=== PATIENT | male | born 1990 | race Two or more races ===

== ENCOUNTER 2017-09-03 13:31 | Outpatient (CLI) | payer OTHER | END 2017-09-03 13:41 | disposition home or self-care (01) | LOC: LAB 13:31 | DX: E83.42 Hypomagnesemia (principal); E55.9 Vitamin D deficiency, unspecified ==

== ENCOUNTER 2017-09-03 13:47 | Outpatient (CLI) | payer OTHER | END 2017-09-03 13:57 | disposition home or self-care (01) | LOC: EKG 13:47 | DX: I49.9 Cardiac arrhythmia, unspecified (principal) ==

== ENCOUNTER 2017-09-03 13:56 | Outpatient (CLI) | payer OTHER | END 2017-09-03 14:06 | disposition home or self-care (01) | LOC: RAD 13:56 | DX: Z76.89 Persons encountering health services in other specified circumstances (principal) ==

== ENCOUNTER 2017-09-20 06:10 | Day surgery (SDC) | payer OTHER | END 2017-09-20 12:35 | disposition home or self-care (01) | LOC: CIR.AMB 06:10 | DX: M12.262 Villonodular synovitis (pigmented), left knee (principal); M23.342 Other meniscus derangements, anterior horn of lateral meniscus, left knee; M22.12 Recurrent subluxation of patella, left knee ==

== ENCOUNTER 2017-11-12 06:35 | Day surgery (SDC) | payer OTHER ==
[2017-11-12] MEDS ORDERED: LEVAQUIN750 MG PO (10:36)
[2017-11-12] MEDS ORDERED: ULTRACET PO (10:36)
[2017-11-12] MEDS ORDERED: BACTRIM DS TAB1 EACH PO (10:37)
== END 2017-11-12 13:00 | disposition home or self-care (01) ==
LOC: CIR.AMB 06:35
DX: M00.862 Arthritis due to other bacteria, left knee (principal); M23.342 Other meniscus derangements, anterior horn of lateral meniscus, left knee; M22.12 Recurrent subluxation of patella, left knee

== ENCOUNTER 2019-05-04 15:59 | Emergency (ER) | payer OTHER ==
[~2019-05-04] VITALS: Ht 175.3 cm; Wt 83.9 kg
[~2019-05-04 15:59] MED LIST: BACTRIM DS TAB1 EACH PO; LEVAQUIN750 MG PO; ULTRACET PO
== END 2019-05-04 20:45 | disposition home or self-care (01) ==
LOC: ER 15:59
DX: S90.32XA Contusion of left foot, initial encounter (principal); W23.0XXA Caught, crushed, jammed, or pinched between moving objects, initial encounter; Y93.89 Activity, other specified; Y92.89 Other specified places as the place of occurrence of the external cause; Y99.8 Other external cause status; M25.562 Pain in left knee